=== PATIENT | female | born 1995 | race Caucasian/White ===

== ENCOUNTER 2018-07-18 23:00 | Emergency (ER) | payer OTHER ==
[~2018-07-18] VITALS: Ht 157.5 cm; Wt 69.6 kg
[2018-07-18 23:11] VITALS: Ht 157.5 cm; Wt 69.6 kg
[2018-07-18 23:53] VITALS: BP 143/77
== END 2018-07-18 23:53 | disposition home or self-care (01) ==
LOC: ED 23:00
DX: H60.91 Unspecified otitis externa, right ear (principal); F32.9 Major depressive disorder, single episode, unspecified